=== PATIENT | male | born 1980 | race African-American/Black ===

== ENCOUNTER 2020-10-30 09:27 | Day surgery (SDC) | payer OTHER ==
[2020-10-25 13:24] VITALS: BMI 52.7
[2020-10-30] MEDS ORDERED: PROPOFOL 20 ML ONE ×3 (10:46)
[2020-10-30] MEDS ORDERED: ceFAZolin SODIUM 1 GM VIAL ONE ×4 (11:31→11:38)
[2020-10-30] MEDS ORDERED: MIDAZOLAM HCL 2 MG/2 ML SINGLE DOSE VIAL ONE (12:00)
[2020-10-30] MEDS ORDERED: oxyCODONE HCL 5 MG TABLET PO PRN (12:48)
[2020-10-30] MEDS ORDERED: ONDANSETRON 4 MG/2 ML VIAL IVPUSH PRN (12:48)
[2020-10-30 13:30] VITALS: TEMP 97.4
[2020-10-30 13:57] VITALS: BP 140/84; PULSE 74
== END 2020-10-30 14:00 | disposition home or self-care (01) ==
LOC: FASU 09:27
PROVIDERS: ATTEND Orthopaedic Surgery
PROC: 0SBD4ZZ Excision of Left Knee Joint, Percutaneous Endoscopic Approach (ICD-10-PCS; principal; 2020-10-30 11:39)
DX: S83.242A Other tear of medial meniscus, current injury, left knee, initial encounter (principal); S83.282A Other tear of lateral meniscus, current injury, left knee, initial encounter; M23.8X2 Other internal derangements of left knee; M94.262 Chondromalacia, left knee; M67.262 Synovial hypertrophy, not elsewhere classified, left lower leg; X58.XXXA Exposure to other specified factors, initial encounter; Y92.9 Unspecified place or not applicable; Y93.9 Activity, unspecified
CPT/HCPCS: 88304-TC; 94760; 97116-GP